=== PATIENT | female | born 1980 | race African-American/Black ===

== ENCOUNTER 2018-01-07 14:45 | Emergency (ER) | payer SELFPAY ==
[~2018-01-07] VITALS: Ht 165.1 cm; Wt 83.0 kg
[~2018-01-07 14:45] MED LIST: CIPR500T94 PO; PHEN-318 PO; TRAM-48 PO
[2018-01-07 14:54] VITALS: BP 118/74
[2018-01-07] MEDS ORDERED: HYDROcodone/APAP 5/325MG 1 TAB TABLET PO ONE (15:15)
[2018-01-07] MEDS ORDERED: LIDOCAINE WITH 8.4% SOD BICARB 3 ML DISP.SYRIN. INJ ONE (15:15)
[2018-01-07] MEDS ORDERED: CEPH-264 PO (15:25)
[2018-01-07] MEDS ORDERED: HYDR-971 PO (15:25)
--- NOTE | 2018-01-07 15:26 | PHYS DOC ---
Past Medical History Past Medical History: No Pertinent History Past Surgical History: Alcohol Use: None Drug Use: None Adult General Chief Complaint Chief Complaint: ABSCESS HPI HPI Patient is a 37 year old female who presents with a abscess in her left axillary for week. She states she has a history of abscesses. She is no known drug allergies. Patient states she takes no medications daily, has no medical history, no surgeries. Patient currently by a signs are 98.2, 118/74, 84 heart rate, 99% on room air. Review of Systems Review of Systems Constitutional: Denies fever or chills [] Eyes: Denies change in visual acuity, redness, or eye pain [] HENT: Denies nasal congestion or sore throat [] Respiratory: Denies cough or shortness of breath [] Cardiovascular: No additional information not addressed in HPI [] GI: Denies abdominal pain, nausea, vomiting, bloody stools or diarrhea [] : Denies dysuria or hematuria [] Musculoskeletal: Denies back pain or joint pain [] Integument: Left axillary abscess. Denies rash or skin lesions [] Neurologic: Denies headache, focal weakness or sensory changes [] Endocrine: Denies polyuria or polydipsia [] All other systems were reviewed and found to be within normal limits, except as documented in this note. Current Medications Current Medications Current Medications Medications (Trade) Dose Ordered Sig/Snehal Start Time Stop Time Status Last Admin Dose Admin Acetaminophen/ Hydrocodone Bitart (Lortab 5/325) 1 tab 1X ONCE 01/07/18 15:15 01/07/18 15:17 DC 01/07/18 15:27 1 TAB Lidocaine/Sodium Bicarbonate (Buffered Lidocaine 1%) 3 ml 1X ONCE 01/07/18 15:15 01/07/18 15:17 DC 01/07/18 15:26 3 ML Allergies Allergies Allergies Coded Allergies Type Severity Reaction Last Updated Verified No Known Drug Allergies 05/18/15 No Physical Exam Physical Exam Constitutional: Well developed, well nourished, no acute distress, non-toxic appearance. [] HENT: Normocephalic, atraumatic, bilateral external ears normal, oropharynx moist, no oral exudates, nose normal. [] Eyes: PERRLA, EOMI, conjunctiva normal, no discharge. [] Neck: Normal range of motion, no tenderness, supple, no stridor. [] Cardiovascular:Heart rate regular rhythm, no murmur [] Lungs & Thorax: Bilateral breath sounds clear to auscultation [] Abdomen: Bowel sounds normal, soft, no tenderness, no masses, no pulsatile masses. [] Skin: Warm, dry, no erythema, no rash. Left axillary, reddened, tender, dollar coin sized abscess.[] Back: No tenderness, no CVA tenderness. [] Extremities: No tenderness, no cyanosis, no clubbing, ROM intact, no edema. [] Neurologic: Alert and oriented X 3, normal motor function, normal sensory function, no focal deficits noted. [] Psychologic: Affect normal, judgement normal, mood normal. [] Current Patient Data Vital Signs Vital Signs Date Time Temp Pulse Resp B/P (MAP) Pulse Ox O2 Delivery O2 Flow Rate FiO2 01/07/18 15:27 18 97 Room Air 01/07/18 14:54 98.2 84 118/74 (89) 98.2 EKG EKG [] Radiology/Procedures Radiology/Procedures [] Course & Med Decision Making Course & Med Decision Making Patient is a 37 year old female who presents with a abscess in her left axillary for week. She states she has a history of abscesses. She is no known drug allergies. Patient states she takes no medications daily, has no medical history, no surgeries. Patient currently by a signs are 98.2, 118/74, 84 heart rate, 99% on room air. Skin is pink warm and dry. Patient is afebrile. Patient has a alert coin-sized soft abscess that is non-draining. It is tender to palpation. Patient rates her pain a 9 out of 10. There is no streaking the abscess itself is reddened. Alert and oriented. Patient is given a [place] in the ED. It will be numbed up with some buffering lidocaine and opened for drainage. She will be placed on Keflex antibiotic and should follow up with her primary care within the next 2-3 days. She can also follow-up here in the ED for a wound check in the next 48 hours. Left axillary abscess drained a large amount of purulent fluid. Patietn staes that the abscessed area feels better. Abscess Incision and Drainage with irrigation by me: Location: Left axillary Anesthesia: Local 1% Lidocaine Technique: Irrigated. Disrupted loculations w/ instrumentation Packing: None Complications: Neurovascularly intact post procedure 48 hour wound check. Scar minimization instructions given. Patient's skin symptoms have stabilized while they have been evaluated in the department and are appropriate for outpatient care and work up. Exam and w/u not consistent w/ sepsis, deep space infection, or foreign body. Staff Physician Addendum: I was working in the ER during the course of this patient's visit. I was available for consultation as needed, but I was not directly involved in the care of this patient. Dragon Disclaimer Dragon Disclaimer This electronic medical record was generated, in whole or in part, using a voice recognition dictation system. Departure Departure Impression: Primary Impression: Abscess Disposition: 01 HOME, SELF-CARE Condition: STABLE Referrals: NO PCP (PCP) Patient Instructions: Abscess, Abscess, Care After Additional Instructions: Follow-up through primary care in next 2-3 days. You can also return to the ED in the next 48 hours for a wound check. Take medications as prescribed. Scripts Hydrocodone/Apap 5-325 (NORCO 5-325 TABLET) 1 Each Tablet 1 TAB PO PRN Q6HRS PRN for PAIN, #12 TAB 0 Refills Prov: PITER ORTIZ APRN 01/07/18 Cephalexin (KEFLEX) 500 Mg Capsule 1 CAP PO BID for 7 Days, #14 CAP Prov: PITER ORTIZ APRN 01/07/18 PITER ORTIZ APRN Jan 07, 2018 15:26 JONN CONNOLLY MD Jan 11, 2018 06:41
== END 2018-01-07 16:14 | disposition home or self-care (01) ==
LOC: ER 14:45
DX: L02.412 Cutaneous abscess of left axilla (principal); Z98.890 Other specified postprocedural states
CPT/HCPCS: 10060; 99283